=== PATIENT | male | born 1995 | race Caucasian/White ===

== ENCOUNTER 2022-09-26 10:34 | Emergency (ER) | payer MEDICAID, OTHER ==
--- NOTE | 2022-09-26 11:37 | ED Physician Documentation ---
History of Present Illness - Stated complaint Stated Complaint: LT FOOT PX - Chief complaint Chief Complaint: Ext Problem - Additonal information Additional information: 27-year-old male presents emergency department for evaluation of several months left heel and plantar pain. Reports sharp shooting pains throughout the day. No foot or ankle swelling. No fevers. States it is particularly worse after playing soccer. He tries to wear good fitting shoes. Denies that he has any recent trauma. Review of Systems Constitutional: denies: Fever Musculoskeletal: reports: Extremity pain PD PAST MEDICAL HISTORY - Past Medical History Past Medical History: No - Past Surgical History Past Surgical History: No - Present Medications Home Medications: Ambulatory Orders Medication Instructions Recorded Confirmed No Known Home Medications 09/26/22 09/26/22 - Allergies Allergies/Adverse Reactions: Allergies Allergy/AdvReac Type Severity Reaction Status Date / Time No Known Drug Allergies Allergy Verified 09/26/22 10:44 - Social History Does the pt smoke?: No Smoking Status: Never smoker Does the pt drink ETOH?: No Does the pt have substance abuse?: No - Immunizations Immunizations are current?: Yes PD ED PE EXPANDED - General General: Alert, No acute distress ( ) - Extremities Extremities: Left foot (No swelling or ecchymosis. 2+ DP pulse. Neurovascular intact. Normal gait. Full range of motion of the ankle and foot. Mild tenderness was elicited with palpation of the plantar surface of the foot.) Results - Vitals Vitals: Vital Signs - 24 hr 09/26/22 10:45 Temperature 36.4 C L Heart Rate 55 L Respiratory 15 Rate Blood Pressure 148/77 H O2 Saturation 100 Oxygen O2 Source Room air - Rads (name of study) Left foot x-ray Relevant Findings:: Final report received (No acute bony abnormality) PD Medical Decision Making - ED course Complexity details: reviewed results, re-evaluated patient, d/w patient ED course: 27-year-old male presents with several months of left foot pain. Mostly on the plantar surface and worse after ambulation. Clinically no evidence of infection. Given duration of symptoms and lack of leg swelling or foot swelling I have low suspicion for DVT. X-rays without acute bony pathology B. Clinically this appears to be likely a plantar fasciitis. I discussed routine conservative measures including taping. [id number] medications such as Tylenol or ibuprofen. And recommend follow-up with PCP for referral to podiatry Departure - Departure Disposition: 01 Home, Self Care Clinical Impression: Plantar fascia syndrome Condition: Stable Record reviewed to determine appropriate education?: Yes Instructions: Plantar Fasciitis, Plantar Fasciitis Tx Comments: As discussed I suspect that you may have plantar fascitis as the cause of your pain. I recommend motrin or tylenol over the counter for discomfort. I encourage you to look up plantar fascia taping and use the KT tape. In the future I would recommend a referral to a harness puller who sepcialize in treating plantar fascitis and improving outcomes in the future.
[2022-09-26 11:44] VITALS: BP 132/72
--- NOTE | 2022-09-26 11:44 | XRAY Report ---
PROCEDURE: Foot 3 View LT INDICATIONS: pain TECHNIQUE: 3 views of the foot were acquired. COMPARISON: None. FINDINGS: Bones: No fractures or dislocations. No suspicious bony lesions. Soft tissues: No suspicious soft tissue calcifications or masses. IMPRESSION: No acute bony abnormality. Reviewed by: Arnold Linares MD on 09/26/2022 11:42 AM PDT Approved by: Arnold Linares MD on 09/26/2022 11:42 AM PDT Station ID: [id number]
== END 2022-09-26 11:41 | disposition home or self-care (01) ==
LOC: ED 10:34
DX: M72.2 Plantar fascial fibromatosis (principal)
CPT/HCPCS: 99283